=== PATIENT | male | born 1980 | race Caucasian/White ===

== ENCOUNTER 2021-07-29 11:19 | Emergency (ER) | payer MEDICAID ==
[~2021-07-29] VITALS: Ht 175.3 cm; Wt 72.6 kg
--- NOTE | 2021-07-29 11:19 | NUR ---
Pt to bed 8 for evaluation.
[2021-07-29 11:20] VITALS: BP_SYST 151
--- NOTE | 2021-07-29 11:20 | NUR ---
Pt is AAO and ambulatory reporting anxiety and pain in his chest wall x 2 days. Pt reports that he is feeling panic after he got news that his friend . Pt believes he is SOB but his RR is 20 and SPO2 is 100%. Vital signs are stable.
--- NOTE | 2021-07-29 11:32 | NUR ---
Dr. Baker at bedside to assess.
--- NOTE | 2021-07-29 11:34 | NUR ---
EKG done at bedside.
--- NOTE | 2021-07-29 11:44 | NUR ---
Portable CXR completed at bedside.
[2021-07-29] MEDS ORDERED: LORazepam 1 MG TABLET PO ONE (11:45)
[2021-07-29] MEDS ORDERED: LORA-258 PO (12:43)
[2021-07-29 13:25] VITALS: BP_SYST 130
--- NOTE | 2021-07-29 13:25 | NUR ---
Patient given written and verbal discharge instructions and verbalizes understanding. Dr. Samuel CURRY MD discussed with patient the results and treatment provided. Patient in stable condition. ID arm band removed. Rx of Atiavn per MD. Patient educated on pain management and to follow up with PMD. Pain Scale 0/10. Opportunity for questions provided and answered. Medication side effect fact sheet provided.
== END 2021-07-29 13:25 | disposition home or self-care (01) ==
LOC: SED 11:19
DX: F41.9 Anxiety disorder, unspecified (principal)
CPT/HCPCS: 71045; 93005; 99283